=== PATIENT | female | born 1960 | race Caucasian/White ===

== ENCOUNTER 2016-07-31 08:24 | Day surgery (SDC) | payer OTHER ==
[2016-07-30 10:22] VITALS: BMI 30.5
[~2016-07-31] VITALS: Ht 172.7 cm; Wt 92.5 kg
[2016-07-31] VITALS (11 sets, daily range): BP systolic 92–127; BP diastolic 51–65; PULSE 44–65; RESP 14–27; Ht 172.7 cm; Wt 92.5 kg
[~2016-07-31 08:24] MED LIST: DIAZ10TA4 PO; SUMA100T9 PO; VALA10004 PO
[2016-07-31] MEDS ORDERED: metroNIDAZOLE 500 MG/NS (PMX) 100 ML IVPB ONE (08:30)
[2016-07-31] MEDS ORDERED: D5-NS + KCL 20 MEQ 1,000 ML IV SCH (08:30)
[2016-07-31] MEDS ORDERED: CEFAZOLIN 2 GM/50 ML (PMX) 50 ML IVPB ONE (08:30)
[2016-07-31] MEDS ORDERED: ESTR1TAB23 PO (08:55)
[2016-07-31] MEDS ORDERED: CARI350T29 PO (08:56)
[2016-07-31] MEDS ORDERED: DIAZ10TA4 PO (08:56)
--- NOTE | 2016-07-31 10:16 | HPN ---
Date/Time of Note Date/Time of Note DATE: 07/31/16 TIME: 10:15 Interval H&P Admission Note Pt. seen H&P reviewed: No system changes LEANNE BROUSSARD MD July 31, 2016 10:15
[2016-07-31] MEDS ORDERED: MIDAZOLAM 1 MG/ML 2 ML INJ ONE (10:24)
[2016-07-31] MEDS ORDERED: FENTAnyl 50 MCG/ML VIAL ONE (10:24)
[2016-07-31] MEDS ORDERED: ACETIC ACID 0.25% IRR 1,000 ML BTL IRR SCH (10:30)
[2016-07-31] MEDS ORDERED: FERRIC SUBSULFATE 8 GM VIAL TOP SCH (10:30)
[2016-07-31] MEDS ORDERED: BUPIVACAINE 0.25% (MPF) 30 ML INJ ONE (10:51)
[2016-07-31] MEDS ORDERED: BACITRACIN/POLYMYXIN 28.35 GM OINT TOP ONE (10:55)
[2016-07-31] MEDS ORDERED: ONDANSETRON 4 MG INJ ONE (11:11)
[2016-07-31] MEDS ORDERED: PROPOFOL 20 ML ONE (11:11)
[2016-07-31] MEDS ORDERED: LIDOCAINE 2% (SDV) 5 ML INJ ONE (11:11)
[2016-07-31] MEDS ORDERED: CEFAZOLIN 1 GM INJ ONE (11:11)
[2016-07-31] MEDS: FENTAnyl 50 MCG/ML VIAL IV PRN ×2 (11:27→12:10)
[2016-07-31] MEDS ORDERED: MEPERIDINE 25 MG INJ IV PRN (11:30)
[2016-07-31] MEDS ORDERED: DIPHENHYDRAMINE 50 MG INJ IV PRN (11:30)
[2016-07-31] MEDS ORDERED: ONDANSETRON 4 MG INJ IV PRN (11:30)
[2016-07-31] MEDS ORDERED: HYDROmorphONE (0.2 MG/ML) 10ML SYG IV PRN ×2 (11:30)
[2016-07-31] MEDS ORDERED: HYDROCODONE/APAP (5/325) TAB PO PRN (11:30)
[2016-07-31] MEDS ORDERED: POTASSIUM CHLORIDE 20 MEQ in LACTATED RINGER'S 990 ML IV SCH (13:00)
== END 2016-07-31 13:15 | disposition home or self-care (01) ==
LOC: SDS 08:24
DX: D07.1 Carcinoma in situ of vulva (principal); E78.5 Hyperlipidemia, unspecified
CPT/HCPCS: 57061; 86850; 86900; 86901; 86920; J0690; J2250; J2405; J3010; J3480; J7120; Z7512; Z7610